=== PATIENT | female | born 1935 | race Hispanic/Latino ===

== ENCOUNTER → 2016-08-06 | Outpatient (CLI) | payer MEDICARE, OTHER | END | disposition home or self-care (01) | LOC: GMAL 10:55 | PROVIDERS: ATTEND Family Medicine | DX: E55.9 Vitamin D deficiency, unspecified (principal); R33.8 Other retention of urine ==

== ENCOUNTER → 2016-10-20 | Outpatient (CLI) | payer MEDICARE, OTHER ==
--- NOTE | 2016-10-20 13:33 | MAM ---
EXAM DESCRIPTION: Screening Mammogram,Bilateral CLINICAL HISTORY: 81 years, Female, Screening mammogram COMPARISON: October 17, 2015 TECHNIQUE: CC and MLO digital mammograms with computer aided detection. FINDINGS: There are scattered fibroglandular densities. There is no dominant mass nor any suspicious microcalcifications. Benign microcalcifications are present. IMPRESSION: BI-RADS 2: BENIGN FOLLOW-UP: Routine mammography screening. Electronically signed by: Jay Grace MD 10/20/2016 1:32 PM CDT
== END | disposition home or self-care (01) ==
LOC: MAMMO 08:37
PROVIDERS: ATTEND Family Medicine
DX: Z12.31 Encounter for screening mammogram for malignant neoplasm of breast (principal)

== ENCOUNTER → 2016-11-17 | Outpatient (CLI) | payer MEDICARE, OTHER | END | disposition home or self-care (01) | LOC: GMAL 10:48 | PROVIDERS: ATTEND Family Medicine | DX: E55.9 Vitamin D deficiency, unspecified (principal) ==

== ENCOUNTER → 2016-12-26 | Outpatient (CLI) | payer MEDICARE, OTHER ==
--- NOTE | 2016-12-29 09:03 | MRI ---
EXAM DESCRIPTION: MRI lumbar spine CLINICAL HISTORY: Lumbar spine pain. Radiculopathy. COMPARISON: None Available. TECHNIQUE: Standard sagittal and axial MR images of the lumbar spine. FINDINGS: Multilevel degenerative disc and facet disease with dextroscoliosis L5-S1: Moderate facet arthrosis right greater than left. No canal stenosis or descending S1 nerve compression. Shallow disc bulge abuts the inferior aspect of the exiting left L5 nerve without displacement or compression. Focal disc herniation, specifically protrusion into the right foramen. The protrusion spans approximately 1.7 cm transverse projecting about 8 mm beyond the endplate osteophyte ridge compressing exiting right L5 nerve sagittal T2 image 13 and axial T2 image 3 L4-5: Moderate facet arthrosis and hypertrophy. Annular fissure with broad-based disc protrusion which extends about 5 mm beyond the endplate. Severe canal stenosis with complete effacement of CSF. Canal measurements approximately 5 x 8 mm. Compression of descending L5 nerves from severe subarticular recess stenosis. Moderate to severe entry zone foraminal stenosis abutting and mildly deforming the exiting L4 nerves L3-4: Moderate facet arthrosis and hypertrophy left greater than right. Minimal annular bulge. Subarticular recess narrowing is mild to moderate left greater than right. Moderate foraminal narrowing L2-3: Right transverse process fracture with marrow edema at the fracture site, age-indeterminate. Mild facet arthrosis. No focal disc abnormality, canal stenosis or nerve impingement L1-2: Mild facet arthrosis. Mild disc osteophyte ridging right paracentral. There is no canal stenosis or focal nerve impingement T12-L1: No canal or foraminal narrowing Conus medullaris and cauda equina are normal. No marrow infiltration or focal marrow lesion. No paravertebral muscle abnormality. No mass or adenopathy in the retroperitoneum. Left kidney not seen in the [id number]. No kidney in the left renal fossa IMPRESSION: Right transverse process fracture L2 L5-S1: Broad-based protrusion in the foramen compressing the exiting right L5 nerve L4-5: Severe canal and subarticular recess stenosis Electronically signed by: Rakan Jurado MD 12/29/2016 9:02 AM CDT
== END | disposition home or self-care (01) ==
LOC: MRI 12:54
PROVIDERS: ATTEND Family Medicine
DX: M54.16 Radiculopathy, lumbar region (principal)

== ENCOUNTER → 2016-12-29 | Outpatient (CLI) | payer MEDICARE, OTHER | END | disposition home or self-care (01) | LOC: LAB.O 08:35 | PROVIDERS: ATTEND Family Medicine | DX: I50.1 Left ventricular failure, unspecified (principal) ==

== ENCOUNTER → 2017-02-27 | Outpatient (CLI) | payer MEDICARE, OTHER | END | disposition home or self-care (01) | LOC: GMAL 10:35 | PROVIDERS: ATTEND Family Medicine | DX: D51.3 Other dietary vitamin B12 deficiency anemia (principal); E55.9 Vitamin D deficiency, unspecified; D51.9 Vitamin B12 deficiency anemia, unspecified ==

== ENCOUNTER → 2017-04-20 | Outpatient (CLI) | payer MEDICARE, OTHER | END | disposition home or self-care (01) | LOC: YCFC.O 09:12 | PROVIDERS: ATTEND Anesthesiology Pain Medicine | DX: Z79.891 Long term (current) use of opiate analgesic (principal) ==

== ENCOUNTER → 2017-05-27 | Outpatient (CLI) | payer MEDICARE, OTHER | END | disposition home or self-care (01) | LOC: GMAB 10:33 | PROVIDERS: ATTEND Family Medicine | DX: E55.9 Vitamin D deficiency, unspecified (principal) ==

== ENCOUNTER → 2017-06-10 | Outpatient (CLI) | payer MEDICARE, OTHER ==
--- NOTE | 2017-06-11 10:59 | US ---
EXAM DESCRIPTION: Breast,Left: Ultrasound CLINICAL HISTORY: 81 yearsFemaleBREAST LUMP COMPARISON: Digital 3-D tomosynthesis diagnostic left breast mammography on this visit. TECHNIQUE: Transcutaneous scanning of the superior posterior and axillary region of the left breast utilizing two-dimensional and Doppler modes. Scanning performed by the technical support internship and Dr. Burns. FINDINGS: Scanning of the superior posterior axillary region of the left breast. Almost completely fatty tissue with minimal heterogeneous fibroglandular tissue was visualized. No skin changes. No discrete focal solid mass or cyst. No parenchymal edema or large calcifications. No abnormal Doppler vascularity. IMPRESSION: 1. Bi-Rads Category 2: Benign. 2. Please refer to 3-D tomosynthesis diagnostic left breast mammographic examination and report on this visit. The FINDINGS and the follow-up plan were reviewed in person with the patient after the examination. Written communication explaining the IMPRESSION and follow-up will be mailed to the patient and referring care provider. Electronically signed by: Sergio Burns MD 06/11/2017 10:57 AM [facility]
--- NOTE | 2017-06-11 11:14 | MAM ---
EXAM DESCRIPTION: 3D Diagnostic, Left: Digital Mammography CLINICAL HISTORY: 81 yearsFemaleBREAST LUMP probable lump tender and painful upper outer quadrant left breast. Digital screening mammogram 10/20/2016.. COMPARISON: Digital screening mammogram 10/20/2016. Report from prior examination also reviewed. TECHNIQUE: Left breast CC LM MLO projection full-field images, 3-D tomosynthesis digital mammographic technique. Also left breast synthesized CC MLO LM full-field images. CAD not utilized. FINDINGS: The breast parenchymal density pattern is: Scattered areas of fibroglandular density. No skin thickening or nipple retraction skin marker where patient palpates lesion. Upper outer quadrant of the left breast 10 cm from the nipple at approximately 200 clock position. No mammographic abnormality in the region of the skin marker. Intramammary lymph nodes. Vascular, solitary microcalcifications and ductal calcifications. No focal, stellate mass or density, focal asymmetry , and no suspicious microcalcifications left breast. Stable mammograms compared to prior screening study, taking into account differences in mammographic technique. ULTRASOUND: Scanning of the superior posterior axillary region of the left breast. Almost completely fatty tissue with minimal heterogeneous fibroglandular tissue was visualized. No skin changes. No discrete focal solid mass or cyst. No parenchymal edema or large calcifications. No abnormal Doppler vascularity. IMPRESSION: BI-RADS CATEGORY: 2 - BENIGN FINDINGS. FOLLOW UP: Return to routine digital bilateral screening, one year interval from October 2016. The FINDINGS and the follow-up plan were reviewed in person with the patient after the examination. Written communication explaining the IMPRESSION and follow-up will be mailed to the patient and referring care provider. According to the [employer], yearly mammograms are recommended starting at age 40 and continuing as long as a woman is in good health. Any breast change noted on a breast self-exam should be reported promptly to the patient's healthcare provider. Breast MRI is recommended for women with an approximately 20-25% or greater lifetime risk of breast cancer, including women with a strong family history of breast or ovarian cancer and women who have been treated for Hodgkin's disease. A negative mammographic report should not delay tissue diagnosis in patients with significant clinical history or physical findings. Extremely dense breast tissue limits the sensitivity of digital mammography. Electronically signed by: Sergio Burns MD 06/11/2017 11:12 AM [facility]
== END | disposition home or self-care (01) ==
LOC: MAMMO 14:52
PROVIDERS: ATTEND Family Medicine
DX: N63.20 Unspecified lump in the left breast, unspecified quadrant (principal)
CPT/HCPCS: 76641; G0206; G0279

== ENCOUNTER 2017-10-02 13:58 | Observation (INO) | payer MEDICARE, OTHER ==
[2017-10-02] MEDS ORDERED: SODIUM CHLORIDE 0.9% (FLUSH) 10 ML SYG IV PRN ×2 (14:08→20:52)
[2017-10-02] MEDS ORDERED: NITROGLYCERIN 0.4 MG 25 EA TAB SL ONE (14:08)
[2017-10-02] MEDS ORDERED: ONDANSETRON INJ 4 MG/2 ML VIAL IV ONE (14:08)
[2017-10-02] MEDS ORDERED: ASPIRIN TABLET 325 MG TAB PO ONE (14:08)
--- NOTE | 2017-10-02 14:08 | ED.PDOC ---
History of Present Illness - General Chief Complaint: Chest Pain/CA Stated Complaint: chest tightness Time Seen by Provider: 10/02/17 14:07 Source: patient Exam Limitations: no limitations - History of Present Illness Initial Comments: Briana Sanz 82 y/o female stated that she had onset of tightness on her chest lasting about 4 minutes went away after sitting down which happened while folding clothes and doing house hold work at home then able to sleep the whole night w/o symptoms then this morning on waking up after coming from the bathroom had another episode of chest tightness with SOB and also radiated between shoulder blades went away after sitting down but had third episode just this afternoon which she stated feels like getting worse decided to come to ER.No previous cardiac event.Has DM2 on insulin ,HTN and left renal CA S/P left nephrectomy. Timing/Duration: 24 hours Severity: moderate Location: central Activities at Onset: activity Prior Chest Pain/Cardiac Workup: no prior chest pain, no prior cardiac workup Improving Factors: rest Worsening Factors: other - see hpi Nitro Today/Relief: 0.4 mg x 1 Aspirin Treatment Today: 325 mg x 1 Associated Symptoms: other - see hpi Allergies/Adverse Reactions: Allergies Amoxicillin [From Augmentin] Allergy (Verified 10/02/17 15:30) Clavulanic Acid [From Augmentin] Allergy (Verified 10/02/17 15:30) Flavoxate [From Urispas] Allergy (Verified 10/02/17 15:28) Gatifloxacin [From TeQuin] Allergy (Verified 10/02/17 15:28) Isometheptene Allergy (Verified 10/02/17 15:30) Nortriptyline Allergy (Verified 10/02/17 15:30) Tolterodine [From Detrol LA] Allergy (Verified 10/02/17 15:27) Home Medications: Ambulatory Orders Furosemide Tab [Lasix Tab] 40 mg PO DAILY 10/02/17 Gabapentin [Neurontin] 100 mg PO BID 10/02/17 Insulin 70/30 (Human) [Novolin 70/30] 12 units SC BEDTIME 10/02/17 Insulin 70/30 (Human) [Novolin 70/30] 36 units SC ACBK 10/02/17 Nabumetone 500 mg PO DAILY 10/02/17 Olmesartan Medoxomil [Benicar] 40 mg PO DAILY 10/02/17 Potassium Chloride [Micro-K] 10 meq PO DAILY 10/02/17 Review of Systems - Review of Systems Constitutional: States: no symptoms reported EENTM: States: no symptoms reported Respiratory: States: no symptoms reported Cardiology: States: see HPI Gastrointestinal/Abdominal: States: no symptoms reported Genitourinary: States: no symptoms reported Musculoskeletal: States: no symptoms reported Skin: States: no symptoms reported Neurological: States: no symptoms reported All other Systems: Reviewed and Negative, No Change from Baseline Past Medical History (General) - Patient Medical History Hx Hypertension: Yes Hx Diabetes: Yes Hx Cancer: Yes - left kidney Surgical History: appendectomy, cholecystectomy, other - hysterectomy,left nephrectomy Family Medical History - Family History Mother Living Status: Age at (years of age): 75 Cause of : aneurysm Hx Family Congestive Heart Failure: Yes Hx Cardiac Disease: Yes - multiple family members Hx Family Diabetes: Yes - dad Hx Family Cancer: Yes - gastric-brother Physical Exam - Physical Exam General Appearance: Alert, Comfortable, No apparent distress Eyes, Ears, Nose, Throat Exam: normal ENT inspection Neck: non-tender, full range of motion, supple, carotid bruit - left side Respiratory: chest non-tender, lungs clear, normal breath sounds Cardiovascular/Chest: normal peripheral pulses, regular rate, rhythm, no gallop , no murmur Peripheral Pulses: radial,right: 2+, radial,left: 2+ Gastrointestinal/Abdominal: normal bowel sounds, non tender, soft, no organomegaly Extremity: no pedal edema, no calf tenderness, normal capillary refill Neurologic: alert, oriented x 3 Skin Exam: normal color, warm/dry Lymphatic: no adenopathy Progress - Progress Progress: 10/02/17 14:47 Vital Signs - 8 hr 10/02/17 10/02/17 14:06 14:31 Temperature 98.6 F Pulse Rate 66 Pulse Rate [ 73 right arm] Respiratory 22 Rate Blood Pressure 152/107 [Left Arm] O2 Sat by Pulse 97 Oximetry - Results/Orders Results/Orders: 10/02/17 14:04 EKG Assessment ONCE 10/02/17 14:08 Sodium Chloride 0.9% (Flush) [Saline Flush Syringe] 10 ml IV PRN PRN EKG Stat Pulse Ox Stat 10/02/17 14:09 EKG Assessment ONCE Pulse Oximetry Assessment DAILY 10/02/17 14:15 EKG STAT 10/02/17 16:00 TROPONIN-I Stat Laboratory Results - last 24 hr 10/02/17 10/02/17 14:13 14:13 WBC 7.4 RBC 3.48 L Hgb 11.2 L Hct 32.6 L MCV 93.7 MCH 32.1 H MCHC 34.3 RDW 12.9 Plt Count 156 MPV 7.7 Absolute Neuts (auto) 5.50 Absolute Lymphs (auto) 1.10 Absolute Monos (auto) 0.60 Absolute Eos (auto) 0.20 Absolute Basos (auto) 0.00 Neutrophils % 74.3 Lymphocytes % 15.0 L Monocytes % 7.6 Eosinophils % 2.6 Basophils % 0.5 PT 10.9 INR 0.940 PTT (SP) 32.1 D-Dimer, Quantitative 366 H* Sodium 134 L Potassium 4.4 Chloride 101 Carbon Dioxide 25 Anion Gap 12.4 BUN 48 H Creatinine 2.08 H BUN/Creatinine Ratio 23.1 H Random Glucose 269 H Serum Osmolality 290.3 Calcium 9.3 Magnesium 2.0 Total Bilirubin 0.9 Direct Bilirubin 0.1 Indirect Bilirubin 0.8 AST 21 ALT 15 Alkaline Phosphatase 49 Creatine Kinase 164 H CK-MB (CK-2) 3.5 CK-MB (CK-2) % Not Reportable Troponin I < 0.02 B-Natriuretic Peptide 487.0 H* Serum Total Protein 6.7 Albumin 3.8 10/02/17 14:04 EKG Assessment ONCE 10/02/17 14:08 Sodium Chloride 0.9% (Flush) [Saline Flush Syringe] 10 ml IV PRN PRN EKG Stat Pulse Ox Stat 10/02/17 14:09 EKG Assessment ONCE Pulse Oximetry Assessment DAILY 10/02/17 14:15 EKG STAT Laboratory Results - last 24 hr 10/02/17 10/02/17 10/02/17 14:13 14:13 16:11 WBC 7.4 RBC 3.48 L Hgb 11.2 L Hct 32.6 L MCV 93.7 MCH 32.1 H MCHC 34.3 RDW 12.9 Plt Count 156 MPV 7.7 Absolute Neuts (auto) 5.50 Absolute Lymphs (auto) 1.10 Absolute Monos (auto) 0.60 Absolute Eos (auto) 0.20 Absolute Basos (auto) 0.00 Neutrophils % 74.3 Lymphocytes % 15.0 L Monocytes % 7.6 Eosinophils % 2.6 Basophils % 0.5 PT 10.9 INR 0.940 PTT (SP) 32.1 D-Dimer, Quantitative 366 H* Sodium 134 L Potassium 4.4 Chloride 101 Carbon Dioxide 25 Anion Gap 12.4 BUN 48 H Creatinine 2.08 H BUN/Creatinine Ratio 23.1 H Random Glucose 269 H Serum Osmolality 290.3 Calcium 9.3 Magnesium 2.0 Total Bilirubin 0.9 Direct Bilirubin 0.1 Indirect Bilirubin 0.8 AST 21 ALT 15 Alkaline Phosphatase 49 Creatine Kinase 164 H CK-MB (CK-2) 3.5 CK-MB (CK-2) % Not Reportable Troponin I < 0.02 < 0.02 B-Natriuretic Peptide 487.0 H* Serum Total Protein 6.7 Albumin 3.8 - EKG/XRAY/CT EKG: Sinus, no ST T wave changes Comments: HR-68 XRAY: chest - prominent heart size with pulmonary vascular congestion Departure - Departure Clinical Impression: Chest tightness or pressure, Diabetes 1.5, managed as type 1 Time of Disposition: 17:18 Disposition: Admit Patient Condition: Fair Departure Forms: Patient Portal Self Enrollment Referrals: Terrence Joy III, MD [Primary Care Provider] - 1-2 Weeks Home Medications: Ambulatory Orders Furosemide Tab [Lasix Tab] 40 mg PO DAILY 10/02/17 Gabapentin [Neurontin] 100 mg PO BID 10/02/17 Insulin 70/30 (Human) [Novolin 70/30] 12 units SC BEDTIME 10/02/17 Insulin 70/30 (Human) [Novolin 70/30] 36 units SC ACBK 10/02/17 Nabumetone 500 mg PO DAILY 10/02/17 Olmesartan Medoxomil [Benicar] 40 mg PO DAILY 10/02/17 Potassium Chloride [Micro-K] 10 meq PO DAILY 10/02/17 Decision To Admit - Decistion To Admit Decision to Admit Reason: Admit from ER Decision to Admit Date: 10/02/17 - D/W Ludmila Sal-ANP/Hospitalist Decision to Admit Time: 17:16
--- NOTE | 2017-10-02 14:52 | RAD ---
EXAM DESCRIPTION: Chest,1 View CLINICAL HISTORY: 82 years Female, pain COMPARISON: Previous study November 19, 2016 TECHNIQUE: AP portable chest. FINDINGS: Heart size is prominent with increased pulmonary vascularity. Findings suggest volume overload or congestive failure with interstitial edema. Discoid atelectasis lung bases and lingula. No consolidating infiltrate. No pulmonary mass or worrisome nodule. No pneumothorax or large pleural effusion. Left rib fractures are present. Deformity of the left humerus is consistent with old fracture. Orthopedic screw in the left humeral head. Prominent spurring of the spine. Compared to a previous study from November 19, 2016, the present findings in the chest are new consistent with acute congestive failure. IMPRESSION: Prominent heart with vascular congestion and interstitial edema consistent with volume overload or congestive failure. Electronically signed by: bK Engel MD 10/02/2017 2:51 PM CDT
[2017-10-02] MEDS ORDERED: BUMETANIDE 0.25 MG/ML VIAL IV ONE (16:03)
--- NOTE | 2017-10-02 17:42 | HP ---
SUPERVISING PHYSICIAN: Claudio Jacobson MD CHIEF COMPLAINT: Chest pain. HISTORY OF PRESENT ILLNESS: This is an 82 year-old female patient who had been in her usual state of health and had about a 4-minute bout of chest pain yesterday. It is quite tight and went straight through to her upper back. After it subsided, she called her primary care physician, Dr. Terrence Joy and he recommended that if it recurred to go to the Emergency Room.. She went the entire night without any further complaints of chest pain but this morning she had another episode but it was very mild, went away within just a few minutes but this afternoon she had chest pain that was tightness in the chest that caused some upper back pain with shortness of breath. There was no diaphoresis. It was not related to exertion and she came to the Emergency Room. In the Emergency Room, her CBC was basically within normal limits and her sodium was 134, potassium 4.4, chloride 101, carbon dioxide 25. BUN 48, creatinine 2.08. She has a history of a left nephrectomy. Her initial set of cardiac enzymes were negative with the exception of her creatinine kinase. Her second troponin was also negative and she had a BNP of 487. Chest x-ray showed a prominent heart with vascular congestion and interstitial edema consistent with volume overload or congestive failure and I was called for hospital admission. PAST MEDICAL HISTORY: 1. Diabetes mellitus. 2. Hypertension. 3. Peripheral neuropathy due to diabetes. 4. Gastroesophageal reflux disease. 5. Hypothyroidism. 6. Depression. PAST SURGICAL HISTORY: 1. Left nephrectomy. 2. Cholecystitis. 3. Hysterectomy. 4. Hernia repair. 5. Appendectomy. 6. Left rotator cuff repair. CURRENT MEDICATIONS: Per the EMR and awaiting verification. ALLERGIES: 1. Amoxicillin. 2. Augmentin. 3. Urispas. 4. Tequin 5. Isometheptene. 6. Nortriptyline. 7. Detrol-LA. SOCIAL HISTORY: She lives in [place], she is . She denies any ETOH, tobacco or illicit drug use. REVIEW OF SYSTEMS: GENERAL: Denies fever, fatigue or weight changes. HEENT: Denies sinus symptoms ear pain, vision changes or sore throat. RESPIRATORY: Positive for shortness of breath with chest pain but no shortness of breath during the examination. No wheezing or cough. CARDIAC: As per history of present illness. GI: Negative for abdominal pain, nausea, vomiting, diarrhea. GENITOURINARY: Negative for dysuria, hematuria, polyuria. MUSCULOSKELETAL: Back pain with chest pain but otherwise no myalgias or arthralgias. SKIN: Denies lesions or rashes. NEURO: Negative for dizziness, headache or seizures. PHYSICAL EXAMINATION: VITAL SIGNS: Temperature 98.4, heart rate 58, blood pressure 124/59, respiratory rate 20, 02 saturation 95% on room air. GENERAL: This is an 82 year-old female patient who is lying in her hospital bed. She is in no acute distress. HEENT: Normocephalic and atraumatic. Pupils are equal and reactive. Oropharynx is clear. NECK: Supple without mass. There is no discernible jugular venous distention. CHEST: Essentially clear to auscultation bilaterally. Chest has equal rise and fall of the chest with inspiration and expiration. CARDIOVASCULAR: Regular rate and rhythm. ABDOMEN: Soft, nondistended, non-tender. Bowel sounds are positive. EXTREMITIES: No cyanosis, clubbing, or edema. NEUROLOGIC: She is awake, alert and oriented x3. LABS AND FILMS: As per the history of present illness. ASSESSMENT: 1. Chest pain, rule out myocardial infarction. 2. Diabetes mellitus type 2. 3. Hypertension. 4. Diabetic neuropathy. 5. Chronic renal insufficiency status post left nephrectomy. 6. Gastroesophageal reflux disease. 7. Mild depression. PLAN: We will place the patient in observation. I have initiated the chest pain guidelines. I will hold off on any additional Lasix at this time as the patient's lungs are clear and there are no signs or symptoms of congestive heart failure. I do not see where she has a diagnosis of congestive heart failure. I have also placed her on sliding scale insulin, restarted her home medications, started her on Lovenox for DVT prophylaxis and PPI for ulcer prophylaxis. Hopefully, she can be discharged tomorrow with close followup with Dr. Joy and if she needs, do further cardiac testing. We will continue to monitor the patient closely and follow as needed. Dr. Jacobson is the collaborating physician available for consultation. #[id number] [facility]
[2017-10-02] MEDS ORDERED: MORPHINE SULFATE INJ 10 MG/ML VIAL IV PRN (20:52)
[2017-10-02] MEDS ORDERED: ACETAMINOPHEN 325 MG TAB PO PRN (20:52)
[2017-10-02] MEDS ORDERED: NITROGLYCERIN 0.4 MG 25 EA TAB SL PRN (20:52)
[2017-10-02] MEDS ORDERED: GLUCAGON INJ 1 MG VIAL SUBCU PRN (20:58)
[2017-10-02] MEDS ORDERED: DEXTROSE 50% 25 GM/50 ML SYG IV PRN (20:58)
[2017-10-02] MEDS ORDERED: ENOXAPARIN SODIUM 40 MG/0.4 ML SYG SUBCU SCH (21:00)
[2017-10-02] MEDS ORDERED: GABAPENTIN 300 MG CAP PO SCH (21:00)
[2017-10-02] MEDS ORDERED: IV SET AND CAP CHANGE INJ INJ SCH (21:00)
[2017-10-02] MEDS ORDERED: GABAPENTIN 100 MG CAP ONE (21:06)
[2017-10-02] MEDS: SODIUM CHLORIDE 0.9% (FLUSH) 10 ML SYG IV SCH (21:12)
[2017-10-02] MEDS: INSULIN LISPRO 100 UNITS/ML PEN SUBCU SCH (23:14)
[2017-10-03] MEDS ORDERED: PANTOPRAZOLE SODIUM IV 40 MG VIAL IV SCH (06:30)
[2017-10-03] MEDS: INSULIN LISPRO 100 UNITS/ML PEN SUBCU SCH ×2 (07:35→12:35)
[2017-10-03] MEDS ORDERED: GABAPENTIN 100 MG CAP PO SCH (09:00)
[2017-10-03] MEDS ORDERED: NON-FORMULARY MEDICATION 1 EA MIS (Olmesartan Medoxomil [Benicar] 40 MG) PO SCH (09:00)
[2017-10-03] MEDS ORDERED: NABUMETONE 500 MG PO SCH (09:00)
[2017-10-03] MEDS ORDERED: POTASSIUM CHLORIDE 10 MEQ TAB PO SCH (09:00)
[2017-10-03] MEDS ORDERED: ASPIRIN TABLET 325 MG TAB PO SCH (09:00)
[2017-10-03] MEDS ORDERED: FUROSEMIDE 40 MG TAB PO SCH (09:00)
[2017-10-03] MEDS: SODIUM CHLORIDE 0.9% (FLUSH) 10 ML SYG IV SCH (09:40)
[2017-10-03 12:51] VITALS: BP 118/61; TEMP 98.7; O2SAT 96
== END 2017-10-03 14:00 | disposition home or self-care (01) ==
LOC: ER 13:58 → MS 17:40
PROVIDERS: ADMIT Nurse Practitioner Acute Care; ATTEND Nurse Practitioner Family
DX: R07.89 Other chest pain (principal); E11.42 Type 2 diabetes mellitus with diabetic polyneuropathy; I12.9 Hypertensive chronic kidney disease with stage 1 through stage 4 chronic kidney disease, or unspecified chronic kidney disease; N18.9 Chronic kidney disease, unspecified; K21.9 Gastro-esophageal reflux disease without esophagitis; F32.9 Major depressive disorder, single episode, unspecified; R06.02 Shortness of breath; E03.9 Hypothyroidism, unspecified; Z79.4 Long term (current) use of insulin; Z79.899 Other long term (current) drug therapy; Z88.0 Allergy status to penicillin; Z88.3 Allergy status to other anti-infective agents; Z88.8 Allergy status to other drugs, medicaments and biological substances; Z90.5 Acquired absence of kidney
CPT/HCPCS: 96372 ×2; 96375 ×2; J3490; J2405; J1650; J1815; 85379; 82553 ×2; 80053; 82948 ×3; 80061; 36415 ×4; 82550 ×2; 80048; 85025 ×2; 85730; 85610; 84484 ×3; 80076; 83880; 36416 ×3; 71045; 94760; 99285; 93005 ×3; G0378; 96374

== ENCOUNTER → 2017-11-18 | Outpatient (CLI) | payer MEDICARE, OTHER | LOC: GMAL 14:29 | PROVIDERS: ATTEND Family Medicine | DX: N39.0 Urinary tract infection, site not specified (principal) ==

== ENCOUNTER → 2018-05-14 | Outpatient (CLI) | payer MEDICARE, OTHER ==
--- NOTE | 2018-05-17 08:04 | MRI ---
Study: MRI of the Brain. Indication: HEADACHE Technique: Multiplanar, multi sequence MRI of the brain obtained without intravenous contrast. Comparison: March 27 6016. Findings: No MRI evidence of acute ischemia, acute hemorrhage, mass, mass effect, midline shift, or extra-axial fluid collection. Ventricles are normal in configuration without hydrocephalus. Brain parenchyma demonstrates a normal appearance for patient's age. Midline structures are intact. Paranasal sinuses are adequately aerated. Mastoid air cells are adequately aerated. Osseous structures and soft tissues demonstrate normal signal characteristics. Impression: No acute intracranial abnormality by MRI. Electronically signed by: Ian March MD 05/17/2018 8:02 AM [facility]
== END ==
LOC: MRI 13:45
PROVIDERS: ATTEND Family Medicine
DX: G44.209 Tension-type headache, unspecified, not intractable (principal)

== ENCOUNTER 2018-10-18 21:04 | Emergency (ER) | payer MEDICARE, OTHER ==
[2018-10-18] MEDS ORDERED: IPRATROPIUM/ALBUTEROL 3 ML VIAL NEB ONE (21:20)
--- NOTE | 2018-10-18 21:35 | ED.PDOC ---
History of Present Illness - General Chief Complaint: Respiratory Problem Stated Complaint: cough, short of breath Time Seen by Provider: 10/18/18 21:31 Source: patient, family Exam Limitations: no limitations - History of Present Illness Initial Comments: PRODUCTIVE COUGH AND SOB AND WHEEZING SINCE THURSDAY. HAS BEEN RUNNING A LOW GRADE FEVER. THE SPUTUM IS WHITE. SHE IS A DIABETIC, INSULIN REQUIRING. Timing/Duration: days - 4 Severity: moderate Activities at Onset: none Possible Cause: no prior episodes Improving Factors: nothing Worsening Factors: nothing Associated Symptoms: denies symptoms Respiratory Risk Factors: no cause identified Allergies/Adverse Reactions: Allergies Amoxicillin [From Augmentin] Allergy (Verified 10/18/18 21:24) Clavulanic Acid [From Augmentin] Allergy (Verified 10/18/18 21:24) Flavoxate [From Urispas] Allergy (Verified 10/18/18 21:24) Gatifloxacin [From TeQuin] Allergy (Verified 10/18/18 21:24) Isometheptene Allergy (Verified 10/18/18 21:24) Nortriptyline Allergy (Verified 10/18/18 21:24) Tolterodine [From Detrol LA] Allergy (Verified 10/18/18 21:24) Home Medications: Ambulatory Orders Furosemide Tab [Lasix Tab] 40 mg PO DAILY 10/02/17 Gabapentin [Neurontin] 100 mg PO TID 10/02/17 Insulin 70/30 (Human) [Novolin 70/30] 12 units SC BEDTIME 10/02/17 Insulin 70/30 (Human) [Novolin 70/30] 36 units SC ACBK 10/02/17 Nabumetone 250 mg PO DAILY 10/02/17 Olmesartan Medoxomil [Benicar] 10 mg PO DAILY 10/02/17 Potassium Chloride [Micro-K] 10 meq PO DAILY 10/02/17 Escitalopram [Lexapro] 20 mg PO DAILY 10/03/17 Eszopiclone [Lunesta] 3 mg PO BEDTIME PRN 10/03/17 Levothyroxine Sodium [Synthroid] 88 mcg PO 0700 10/03/17 Lovastatin 10 mg PO DAILY 10/03/17 Nitroglycerin 0.4 mg Tab [Nitrostat] 1 ea SL Q5MIN PRN #1 bttl 10/03/17 Boyn[place]-3 Fatty Acids [Boyn[place] 3 1000 mg] 1 cap PO DAILY 10/03/17 Azithromycin [Zithromax Z-Rodolfo] 250 mg PO DAILY #6 tab 10/18/18 Dextromethorphan-Guaifenesin [Mucinex Dm Maximum Streng 60-1200 mg] 1 tab PO BID #14 tab 10/18/18 Ipratropium/Albuterol [Duoneb] 3 ml NEB Q8HRS #30 vial 10/18/18 Linagliptin [Tradjenta] 2.5 mg PO DAILY 10/18/18 Spironolactone 12.5 mg PO DAILY 10/18/18 Trazodone HCl [Trazodone Hydrochloride] 50 mg PO BEDTIME 10/18/18 predniSONE 20 mg PO 5XD #7 tab 10/18/18 Review of Systems - Review of Systems Constitutional: States: fever EENTM: States: no symptoms reported Respiratory: States: cough, short of breath Cardiology: States: no symptoms reported Gastrointestinal/Abdominal: States: no symptoms reported Genitourinary: States: no symptoms reported Musculoskeletal: States: no symptoms reported Skin: States: no symptoms reported Neurological: States: no symptoms reported Endocrine: States: no symptoms reported Hematologic/Lymphatic: States: no symptoms reported Past Medical History (General) - Patient Medical History Hx Seizures: No Hx Stroke: No Hx Dementia: No Hx Asthma: No Hx of COPD: No Hx Cardiac Disorders: No Hx Congestive Heart Failure: No Hx Pacemaker: No Hx Hypertension: Yes Hx Thyroid Disease: Yes Hx Diabetes: Yes - insulin dependent Hx Gastroesophageal Reflux: Yes Hx Renal Disease: - L kidney cancer, 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 Hx MRSA: No Surgical History: appendectomy, cholecystectomy, Hysterectomy - Vaccination History Hx Influenza Vaccination: Yes Hx Pneumococcal Vaccination: Yes Immunizations Up to Date: Yes - Social History Hx Tobacco Use: No Hx Alcohol Use: No Hx Substance Use: No Hx Physical Abuse: No Hx Emotional Abuse: No - Triage Comment ED Triage Comment: productive cough with nasal drainage for two days, tonight worried that cough may be related to pnuemonia Family Medical History - Family History Mother Living Status: Age at (years of age): 75 Cause of : aneurysm Hx Family Congestive Heart Failure: Yes Hx Cardiac Disease: Yes - multiple family members Hx Family Diabetes: Yes - dad Hx Family Cancer: Yes - gastric-brother Physical Exam - Physical Exam General Appearance: Alert, Well Developed, Well Groomed, Well Hydrated, Well Nourished Eyes, Ears, Nose, Throat Exam: PERRL/EOMI, normal ENT inspection, TMs normal Neck: non-tender, full range of motion, supple Respiratory: chest non-tender, decreased breath sounds, wheezing Cardiovascular/Chest: normal peripheral pulses, no edema, no gallop, no JVD Peripheral Pulses: radial,right: 2+, radial,left: 2+ Gastrointestinal/Abdominal: normal bowel sounds, non tender, soft, no organomegaly, no pulsatile mass Rectal Exam: deferred Extremity: normal range of motion, no pedal edema Neurologic: no motor/sensory deficits, oriented x 3 Skin Exam: normal color Lymphatic: no adenopathy Progress - Results/Orders Results/Orders: 10/18/18 21:30 EKG STAT Laboratory Results WBC 7.5 K/mm3 (4.8-10.8) 10/18/18 21:50 RBC 3.59 M/mm3 (4.20-5.40) L 10/18/18 21:50 Hgb 11.5 gm/dL (12.0-16.0) L 10/18/18 21:50 Hct 34.1 % (36.0-47.0) L 10/18/18 21:50 MCV 94.9 fl (81.0-99.0) 10/18/18 21:50 MCH 32.0 pg (27.0-31.0) H 10/18/18 21:50 MCHC 33.7 g/dL (33.0-37.0) 10/18/18 21:50 RDW 12.9 % (11.5-14.5) 10/18/18 21:50 Plt Count 152 K/mm3 (130-400) 10/18/18 21:50 MPV 7.7 fl (7.40-10.4) 10/18/18 21:50 Absolute Neuts (auto) 4.80 K/uL (1.8-6.8) 10/18/18 21:50 Absolute Lymphs (auto) 1.40 K/uL (1.0-3.4) 10/18/18 21:50 Absolute Monos (auto) 0.80 K/uL (0.2-0.8) 10/18/18 21:50 Absolute Eos (auto) 0.40 K/uL (0.0-0.4) 10/18/18 21:50 Absolute Basos (auto) 0.10 K/uL (0.0-0.1) 10/18/18 21:50 Neutrophils % 63.8 % (42.0-78.0) 10/18/18 21:50 Lymphocytes % 18.1 % (20.0-50.0) L 10/18/18 21:50 Monocytes % 11.3 % (2.0-9.0) H 10/18/18 21:50 Eosinophils % 5.9 % (1.0-5.0) H 10/18/18 21:50 Basophils % 0.9 % (0.0-2.0) 10/18/18 21:50 Sodium 135 mmol/L (135-145) 10/18/18 21:50 Potassium 3.8 mmol/L (3.6-5.0) 10/18/18 21:50 Chloride 101 mmol/L (101-111) 10/18/18 21:50 Carbon Dioxide 23 mmol/L (21-31) 10/18/18 21:50 Anion Gap 14.8 (12-18) 10/18/18 21:50 BUN 34 mg/dL (7-18) H 10/18/18 21:50 Creatinine 2.01 mg/dL (0.6-1.3) H 10/18/18 21:50 BUN/Creatinine Ratio 16.9 (10-20) 10/18/18 21:50 Random Glucose 118 mg/dL (70-105) H 10/18/18 21:50 Serum Osmolality 278.8 mOsm/L (275-295) 10/18/18 21:50 Calcium 8.9 mg/dL (8.4-10.2) 10/18/18 21:50 Total Bilirubin 0.9 mg/dL (0.2-1.0) 10/18/18 21:50 AST 26 IU/L (10-42) 10/18/18 21:50 ALT 16 IU/L (10-60) 10/18/18 21:50 Alkaline Phosphatase 57 IU/L (42-121) 10/18/18 21:50 Troponin I 0.02 ng/mL (0.01-0.05) 10/18/18 21:50 B-Natriuretic Peptide 198.0 pg/ml (0-100) H 10/18/18 21:50 Serum Total Protein 7.2 gm/dL (6.4-8.2) 10/18/18 21:50 Albumin 4.1 g/dl (3.2-5.5) 10/18/18 21:50 Globulin 3.1 gm/dL (2.3-3.5) 10/18/18 21:50 Albumin/Globulin Ratio 1.3 (1.1-1.9) 10/18/18 21:50 Departure - Departure Clinical Impression: Asthmatic bronchitis Qualifiers: Asthma severity: moderate Asthma persistence: persistent Asthma complication type: with acute exacerbation Qualified Code(s): J45.41 - Moderate persistent asthma with (acute) exacerbation Time of Disposition: 22:29 Disposition: Discharge to Home or Self Care Condition: Good Departure Forms: ED Discharge - Pt. Copy, Patient Portal Self Enrollment Instructions: DI for Asthma -- Adult Diet: resume usual diet Referrals: Terrence Joy III, MD [Primary Care Provider] - 1-2 Weeks Prescriptions: Ipratropium/Albuterol [Duoneb] 3 ml NEB Q8HRS #30 vial Azithromycin [Zithromax Z-Rodolfo] 250 mg PO DAILY #6 tab Dextromethorphan-Guaifenesin [Mucinex Dm Maximum Streng 60-1200 mg] 1 tab PO BID #14 tab predniSONE 20 mg PO 5XD #7 tab Home Medications: Ambulatory Orders Furosemide Tab [Lasix Tab] 40 mg PO DAILY 10/02/17 Gabapentin [Neurontin] 100 mg PO TID 10/02/17 Insulin 70/30 (Human) [Novolin 70/30] 12 units SC BEDTIME 10/02/17 Insulin 70/30 (Human) [Novolin 70/30] 36 units SC ACBK 10/02/17 Nabumetone 250 mg PO DAILY 10/02/17 Olmesartan Medoxomil [Benicar] 10 mg PO DAILY 10/02/17 Potassium Chloride [Micro-K] 10 meq PO DAILY 10/02/17 Escitalopram [Lexapro] 20 mg PO DAILY 10/03/17 Eszopiclone [Lunesta] 3 mg PO BEDTIME PRN 10/03/17 Levothyroxine Sodium [Synthroid] 88 mcg PO 0700 10/03/17 Lovastatin 10 mg PO DAILY 10/03/17 Nitroglycerin 0.4 mg Tab [Nitrostat] 1 ea SL Q5MIN PRN #1 bttl 10/03/17 Boyn[place]-3 Fatty Acids [[place] 3 1000 mg] 1 cap PO DAILY 10/03/17 Azithromycin [Zithromax Z-Rodolfo] 250 mg PO DAILY #6 tab 10/18/18 Dextromethorphan-Guaifenesin [Mucinex Dm Maximum Streng 60-1200 mg] 1 tab PO BID #14 tab 10/18/18 Ipratropium/Albuterol [Duoneb] 3 ml NEB Q8HRS #30 vial 10/18/18 Linagliptin [Tradjenta] 2.5 mg PO DAILY 10/18/18 Spironolactone 12.5 mg PO DAILY 10/18/18 Trazodone HCl [Trazodone Hydrochloride] 50 mg PO BEDTIME 10/18/18 predniSONE 20 mg PO 5XD #7 tab 10/18/18
[2018-10-18] MEDS: IPRATROPIUM/ALBUTEROL 3 ML VIAL NEB ONE (21:36)
--- NOTE | 2018-10-18 21:48 | RAD ---
EXAM: XR Chest, 1 View CLINICAL HISTORY: 83 years old and is Female; sob TECHNIQUE: Frontal view of the chest. COMPARISON: 10/02/2017 FINDINGS: Limitations: None. Lungs: Unremarkable. No consolidation. Pleural space: Unremarkable. No pneumothorax. Heart: Unremarkable. No cardiomegaly. Mediastinum: Unremarkable. Bones/joints: Old left rib fractures. Chronic deformity left proximal humerus. IMPRESSION: No acute findings. Electronically signed by: Yola Rivas MD 10/18/2018 9:46 PM CDT
[2018-10-18] MEDS: methylPREDNISolone SODIUM SUC 125 MG/2 ML VIAL IV ONE (22:03)
[2018-10-18] MEDS ORDERED: cefTRIAXone SODIUM 1 GM VIAL ONE (22:31)
[2018-10-18] MEDS ORDERED: SODIUM CHL 0.9% 50ML MIN-BAG+ 50 ML IVPB ONE (22:31)
[2018-10-18] MEDS: cefTRIAXone SODIUM 1 GM in SODIUM CHL 0.9% 50ML MIN-BAG+ 50 ML IVPB ONE (22:34)
[2018-10-18 23:10] VITALS: BP 144/64; TEMP 99.1; O2SAT 98
== END 2018-10-18 23:11 | disposition home or self-care (01) ==
LOC: ER 21:04
DX: J45.41 Moderate persistent asthma with (acute) exacerbation (principal); I10 Essential (primary) hypertension; E07.9 Disorder of thyroid, unspecified; E11.9 Type 2 diabetes mellitus without complications; K21.9 Gastro-esophageal reflux disease without esophagitis; Z79.4 Long term (current) use of insulin; Z85.528 Personal history of other malignant neoplasm of kidney; Z79.899 Other long term (current) drug therapy; Z88.8 Allergy status to other drugs, medicaments and biological substances; Z88.1 Allergy status to other antibiotic agents
CPT/HCPCS: 36415; 71045; 80053; 83880; 84484; 85025; 93005; 94640; J0696; J2930; J7050; J7620

== ENCOUNTER → 2018-12-22 | Outpatient (CLI) | payer MEDICARE, OTHER ==
--- NOTE | 2018-12-23 10:21 | MAM ---
EXAM DESCRIPTION: 3D Screening BILATERAL : Digital Mammography. CLINICAL HISTORY: 83 years Female ANNUAL SCREENING . No complaints. No personal or family history of breast cancer. Childbirth. Postmenopausal 50+ years. No HRT. Lifetime risk of developing breast cancer (Tyrer-Cuzick model)(%): 0.8. COMPARISON: Left breast diagnostic digital breast tomosynthesis 06/10/2017. 2-D digital screening bilateral mammography 10/20/2016.. TECHNIQUE: Bilateral CC and MLO projection full-field images, digital tomosynthesis mammographic technique. Bilateral digital 2-D full-field MLO images. CAD not available for tomosynthesis or 2-D images. FINDINGS: The breast parenchymal density pattern is: Scattered areas of fibroglandular density. No skin thickening or nipple retraction. Bilateral axillary lymph nodes. Bilateral vascular calcifications. Bilateral solitary coarse and microcalcifications.. No new focal, stellate mass or density, focal asymmetry , and no suspicious microcalcifications bilaterally. Stable mammograms compared to prior studies. Taking into account, differences in mammographic technique. IMPRESSION: Benign exam. BIRAD CATEGORY: 2 BENIGN FINDINGS. RECOMMENDATIONS: FOLLOW UP: Routine digital bilateral mammographic screening, one year interval from December 2018. Written communication explaining the IMPRESSION and follow-up, will be mailed to the patient and referring health care provider. According to the [employer], yearly mammograms are recommended starting at age 40 and continuing as long as a woman is in good health. Any breast change noted on a breast self-exam should be reported promptly to the patient's healthcare provider. Breast MRI is recommended for women with an approximately 20-25% or greater lifetime risk of breast cancer, including women with a strong family history of breast or ovarian cancer and women who have been treated for Hodgkin's disease. A negative mammographic report should not delay tissue diagnosis in patients with significant clinical history or physical findings. Extremely dense breast tissue limits the sensitivity of digital mammography. Electronically signed by: Sergio Burns MD 12/23/2018 10:19 AM CDT
== END ==
LOC: MAMMO 08:34
PROVIDERS: ATTEND Family Medicine
DX: Z12.31 Encounter for screening mammogram for malignant neoplasm of breast (principal)

== ENCOUNTER → 2019-01-03 | Outpatient (CLI) | payer MEDICARE, OTHER | LOC: GMAL 10:12 | PROVIDERS: ATTEND Family Medicine | DX: D51.3 Other dietary vitamin B12 deficiency anemia (principal); E03.9 Hypothyroidism, unspecified; E55.9 Vitamin D deficiency, unspecified; I10 Essential (primary) hypertension; E11.42 Type 2 diabetes mellitus with diabetic polyneuropathy; E78.49 Other hyperlipidemia ==